=== PATIENT | female | born 1980 | race African-American/Black ===

== ENCOUNTER 2016-11-12 23:51 | Emergency (ER) | payer MEDICAID ==
[~2016-11-12] VITALS: Ht 165.1 cm; Wt 100.7 kg
[~2016-11-12 23:51] MED LIST: BENTYL10 MG ORAL; NKM; NORCO 5-325 TA1 EACH ORAL; NORCO1 E1 ORAL
[2016-11-12] MEDS ORDERED: ALBUTEROL2.5 MG/3 M INH (23:56)
[2016-11-12] MEDS ORDERED: NKM (23:56)
[2016-11-13 00:20] VITALS: BP 123/71
[2016-11-13] MEDS ORDERED: Ketorolac 30mg Inj IV ONE (00:30)
[2016-11-13 00:47] LABS: APPEARANCE,URINE CLEAR; KETONES,URINE 3+ (NEGATIVE); LEUKOCYTE ESTERASE ,URINE NEGATIVE (NEGATIVE); NITRITE,URINE NEGATIVE (NEGATIVE); PH,URINE 5 (4.5-8.0); PROTEIN,URINE NEGATIVE (NEGATIVE); UROBILINOGEN,URINE NORMAL MG/DL (0.0-1.0)
[2016-11-13 00:53] LABS: BASOPHILS % (AUTO) 1.3 % (0.0-2.0); EOSINOPHILS % (AUTO) 4.4 % (0.0-3.0); LYMPHOCYTES % (AUTO) 39.2 % (20.0-45.0); MEAN CORPUSCULAR HEMOGLOBIN 30.5 PG (27.0-31.0); MEAN CORPUSCULAR HGB CONC 32.2 G/DL (32.0-36.0); MEAN CORPUSCULAR VOLUME 95 FL (80-99); MONOCYTES % (AUTO) 8.9 % (1.0-10.0); NEUTROPHILS % (AUTO) 46.2 % (45.0-75.0); PLATELET COUNT 329 K/UL (150-450); RED BLOOD COUNT 5.02 M/UL (4.20-5.40); RED CELL DISTRIBUTION WIDTH 13.1 % (11.6-14.8); WHITE BLOOD COUNT 6.5 K/UL (4.8-10.8)
[2016-11-13 01:03] LABS: PROTHROMBIN TIME 10.4 SEC (9.30-11.50)
[2016-11-13 01:11] LABS: ALANINE AMINOTRANSFERASE 16 U/L (3-33); ALBUMIN/GLOBULIN RATIO 1.2 (1.0-2.7); ANION GAP 14 (5-15); ASPARTATE AMINO TRANSFERASE 21 U/L (5-40); CALCIUM 9.8 mg/dL (8.6-10.2); CARBON DIOXIDE 25 mEQ/L (20-30); CHLORIDE 101 mEQ/L (98-107); GLOMERULAR FILTRATION RATE > 60 mL/min (>60); HEMOLYSIS 13; LIPASE 26 U/L (< 60); POTASSIUM 4.3 mEQ/L (3.4-4.9); SODIUM 140 mEQ/L (135-145); TOTAL PROTEIN 7.8 g/dL (6.6-8.7)
[2016-11-13 02:23] VITALS: BP 118/62
[2016-11-13 04:00] VITALS: BP 122/63
--- NOTE | 2016-11-13 04:01 | Emergency Room Report ---
History of Present Illness General Chief Complaint: Abdominal Pain Source: Patient Present Illness HPI Patient presents with one week of suprapubic and left lower quadrant pain. She denies any fevers. She denies any dysuria or discharge. She doesn't take any medication for this. She wants to know what the problem is. LNMP 10/20, normal for her. Pain 7/10, aching, LLQ/suprapubic area, some radiation to back. No fever, chills, URI sy, cough, dyspnea, NVD, discharge, extremity pain. She has polycystic ovary syndrome. Allergies: Uncoded Allergies: SHELLFISH (Allergy, Mild, 12/06/15) Patient History Past Medical History: see triage record Social History: Denies: alcohol use, drug use, smoking Social History Narrative with boyfriend Last Menstrual Period: 10/20/16 Now: No : 1 Para: 1 Reviewed Nursing Documentation: PMH: Agreed, PSxH: Agreed Nursing Documentation-PMH Hx Asthma: Yes Review of Systems All Other Systems: negative except mentioned in HPI Physical Exam Vital Signs Date Time Temp Pulse Resp B/P Pulse Ox O2 Delivery O2 Flow Rate FiO2 11/12/16 23:52 98.8 98 14 138/84 100 Room Air Sp02 EP Interpretation: reviewed, normal General Appearance: well appearing, no apparent distress, GCS 15 Head: normocephalic Eyes: bilateral eye PERRL, bilateral eye normal inspection ENT: moist mucus membranes Neck: supple Respiratory: lungs clear, normal breath sounds Cardiovascular #1: regular rate, rhythm Cardiovascular #2: 2+ radial (R) Gastrointestinal: normal inspection, normal bowel sounds, no mass, non- distended, no guarding, no rebound, tenderness - L suprapubic area Genitourinary: no CVA tenderness, os closed, urethra normal, uterus normal, other - Left adnexal tenderness without cervical motion tenderness. Inversion and nabothian cyst Musculoskeletal: back normal, gait/station normal, normal range of motion Neurologic: alert, oriented x3, grossly normal Psychiatric: mood/affect normal Skin: normal inspection, warm/dry Medical Decision Making Diagnostic Impression: Primary Impression: Suprapubic pain ER Course Patient with LLQ pain. DDx: ectopic, ovarian cyst, UTI, PID, diverticulitis amongst others. Evaluation with labs and UA. Exam consistent with ovarian cyst and excludes PID. Treatment with IV hydration and toradol. IF + preg or other lab, consider more advanced studies. Labs unremarkable. Discussed oarian cyst and need for follow up with [employer]OUNT[employer] RECEIVABLE REPRESENTATIVE. Pain resolved with treatment. Patient stable for outpatient observation and treatment. Laboratory Tests Test 11/13/16 00:16 White Blood Count 6.5 K/UL (4.8-10.8) Red Blood Count 5.02 M/UL (4.20-5.40) Hemoglobin 15.3 G/DL (12.0-16.0) Hematocrit 47.6 % (37.0-47.0) H Mean Corpuscular Volume 95 FL (80-99) Mean Corpuscular Hemoglobin 30.5 PG (27.0-31.0) Mean Corpuscular Hemoglobin Concent 32.2 G/DL (32.0-36.0) Red Cell Distribution Width 13.1 % (11.6-14.8) Platelet Count 329 K/UL (150-450) Mean Platelet Volume 7.0 FL (6.5-10.1) Neutrophils (%) (Auto) 46.2 % (45.0-75.0) Lymphocytes (%) (Auto) 39.2 % (20.0-45.0) Monocytes (%) (Auto) 8.9 % (1.0-10.0) Eosinophils (%) (Auto) 4.4 % (0.0-3.0) H Basophils (%) (Auto) 1.3 % (0.0-2.0) Prothrombin Time 10.4 SEC (9.30-11.50) Prothrombin Time INR 1.0 (0.9-1.1) PTT 25 SEC (23-33) Urine Color Pale yellow Urine Appearance Clear Urine pH 5 (4.5-8.0) Urine Specific [place] 1.025 (1.005-1.035) Urine Protein Negative (NEGATIVE) Urine Glucose (UA) Negative (NEGATIVE) Urine Ketones 3+ (NEGATIVE) H Urine Occult Blood Negative (NEGATIVE) Urine Nitrite Negative (NEGATIVE) Urine Bilirubin Negative (NEGATIVE) Urine Urobilinogen Normal MG/DL (0.0-1.0) Urine Leukocyte Esterase Negative (NEGATIVE) Urine HCG, Qualitative Negative Sodium Level 140 mEQ/L (135-145) Potassium Level 4.3 mEQ/L (3.4-4.9) Chloride Level 101 mEQ/L (98-107) Carbon Dioxide Level 25 mEQ/L (20-30) Anion Gap 14 (5-15) Blood Urea Nitrogen 7 mg/dL (7-23) Creatinine 1.0 mg/dL (0.5-0.9) H Estimate Glomerular Filtration Rate > 60 mL/min (>60) Glucose Level 87 mg/dL (74-106) Calcium Level 9.8 mg/dL (8.6-10.2) Total Bilirubin 0.3 mg/dL (0.0-1.2) Aspartate Amino Transferase (AST) 21 U/L (5-40) Alanine Aminotransferase (ALT) 16 U/L (3-33) Alkaline Phosphatase 68 U/L (35-104) Total Protein 7.8 g/dL (6.6-8.7) Albumin 4.3 g/dL (3.5-5.2) Globulin 3.5 g/dL Albumin/Globulin Ratio 1.2 (1.0-2.7) Lipase 26 U/L (< 60) Chlamydia trachomatis RNA Pending Neisseria gonorrhoeae RNA Pending Microbiology Date/Time Source Procedure Growth Status 11/13/16 03:33 Vaginal Wet Prep - Final Complete Last Vital Signs Date Time Temp Pulse Resp B/P Pulse Ox O2 Delivery O2 Flow Rate FiO2 11/13/16 04:16 97.8 76 16 122/63 99 Room Air Status: improved Disposition: HOME, SELF-CARE Condition: Improved Scripts Tramadol Hcl* (ULTRAM*) 50 Mg Tablet 50 MG ORAL Q6H Y for For Pain, #8 TAB 0 Refills Prov: Kannan Mckeon M.D. 11/13/16 Ibuprofen* (MOTRIN*) 600 Mg Tablet 600 MG ORAL Q6H Y for For Pain, #16 TAB Prov: Kannan Mckeon M.D. 11/13/16 Referrals: [facility] (PCP) Kannan Mckeon M.D. Nov 13, 2016 04:01
[2016-11-13] MEDS ORDERED: TRAMADOL HCL50 MG ORAL (04:02)
[2016-11-13] MEDS ORDERED: IBUPROFEN600 MG ORAL (04:02)
[2016-11-13 04:16] VITALS: BP 122/63
== END 2016-11-13 04:16 | disposition home or self-care (01) ==
LOC: EMR 11-13 00:23
DX: R10.32 Left lower quadrant pain (principal); J45.909 Unspecified asthma, uncomplicated; Z91.013 Allergy to seafood
CPT/HCPCS: 36415; 80053; 81003; 81025; 83690; 85025; 85610; 85730; 87210; 87491; 87590; 96374; 96375; 99284; J1885

== ENCOUNTER 2018-01-28 21:07 | Emergency (ER) | payer SELFPAY ==
[~2018-01-28] VITALS: Ht 165.1 cm; Wt 83.9 kg
[~2018-01-28 21:07] MED LIST changes: +ALBUTEROL2.5 MG/3 M INH; +IBUPROFEN600 MG ORAL; +TRAMADOL HCL50 MG ORAL
--- NOTE | 2018-01-28 21:28 | Emergency Room Report ---
History of Present Illness General Chief Complaint: Lower Extremity Injury Source: Patient Present Illness HPI Patient presents with complaints of left foot pain Reports that approximately 2:00 in the afternoon she missed a step tripping forward and had pain to the left foot dorsal aspect denies any lapse of consciousness denies any ankle or knee pain Denies any pelvic pain Pain to the foot is 10 out of 10 worse with attempting to bear weight Allergies: Uncoded Allergies: SHELLFISH (Allergy, Mild, 12/06/15) Patient History Past Medical History: see triage record Pertinent Family History: none Reviewed Nursing Documentation: PMH: Agreed; PSxH: Agreed Nursing Documentation-PMH Past Medical History: No Stated History Hx Asthma: Yes Review of Systems All Other Systems: negative except mentioned in HPI Physical Exam Vital Signs Date Time Temp Pulse Resp B/P (MAP) Pulse Ox O2 Delivery O2 Flow Rate FiO2 01/28/18 21:17 97.2 108 16 140/80 99 Room Air 97.2 Sp02 EP Interpretation: reviewed, normal General Appearance: well appearing, no apparent distress Head: normocephalic, atraumatic Eyes: bilateral eye PERRL, bilateral eye EOMI ENT: hearing grossly normal, normal pharynx Neck: full range of motion, supple Respiratory: lungs clear Cardiovascular #1: regular rate, rhythm Gastrointestinal: non tender, soft Musculoskeletal: swelling - Dorsal left foot, tender to palpation diffusely over the midfoot. Ankle nontender. Knee and proximal fibula nontender Neurologic: alert, oriented x3, responsive Skin: normal color, no rash, warm/dry Lymphatic: no adenopathy Procedures Splinting Splinting : Consent: Verbal Location: Left foot Pre-Made Type: velcro Splint: poserior short Pre-Proc Neuro Vasc Exam: normal Post-Proc Neuro Vasc Exam: normal Patient Tolerated: Well Complications: None Medical Decision Making Diagnostic Impression: Primary Impression: Foot sprain ER Course Given the patient's history and presentation X-ray imaging was obtained No obvious fractures are seen however given the swelling and discomfort patient had splint applied And will have close outpatient follow-up Other X-Ray Diagnostic Results Other X-Ray Diagnostic Results : X-Ray ordered: L foot # of Views/Limited Vs Complete: 3 View Indication: Pain EP Interpretation: Yes Interpretation: no dislocation, no soft tissue swelling, no fractures Impression: No acute disease Electronically Signed by: Ariel Alberts DO Last Vital Signs Date Time Temp Pulse Resp B/P (MAP) Pulse Ox O2 Delivery O2 Flow Rate FiO2 01/28/18 21:17 97.2 108 16 140/80 99 Room Air 97.2 Status: improved Disposition: HOME, SELF-CARE Condition: Improved Scripts Ibuprofen* (MOTRIN*) 600 Mg Tablet 600 MG ORAL THREE TIMES A DAY, #20 TAB 0 Refills Prov: Ariel Alberts DO 01/28/18 Additional Instructions: Patient is provided with the discharge instructions notified to follow up with primary doctor in the next 2-3 days otherwise return to the er with any worsening symptoms. Please note that this report is being documented using [employer] technology. This can lead to erroneous entry secondary to incorrect interpretation by the dictating instrument. Ariel Alberts DO Jan 28, 2018 21:28
[2018-01-28] MEDS ORDERED: Tylenol #3 tab (300mg/30mg) ORAL ONE (21:30)
[2018-01-28] MEDS ORDERED: IBUPROFEN600 MG ORAL (22:08)
[2018-01-28 22:41] VITALS: BP 140/80
--- NOTE | 2018-01-29 10:54 | Diagnostic Imaging Report ---
Indication: Pain Technique: 3 views left foot Comparison: none Findings: There is mild metatarsus adductus and hallux valgus. No acute fractures. No dislocations. The joint spaces are preserved. Impression: Negative
== END 2018-01-28 22:46 | disposition home or self-care (01) ==
LOC: EMR 21:34
DX: S93.602A Unspecified sprain of left foot, initial encounter (principal); W01.0XXA Fall on same level from slipping, tripping and stumbling without subsequent striking against object, initial encounter; Y93.9 Activity, unspecified; Y92.9 Unspecified place or not applicable; Z91.013 Allergy to seafood
CPT/HCPCS: 99283

== ENCOUNTER 2019-04-16 11:14 | Emergency (ER) | payer MEDICAID ==
[~2019-04-16] VITALS: Ht 167.6 cm; Wt 79.4 kg
--- NOTE | 2019-04-16 11:38 | Emergency Room Report ---
History of Present Illness General Chief Complaint: Abdominal Pain Source: Patient Present Illness HPI 38-year-old female with no medical problems, surgical history of and cholecystectomy, presents to the ER with 1 week history of intermittent sharp nonradiating epigastric abdominal pain, became more persistent this morning, with multiple episodes of associated nonbloody nonbilious frl-vwzxvy-kjtjrv emesis. She reports no fevers, no chest pain, no shortness of breath, no gynecologic complaints, no urinary complaints, normal bowel movements, and reports she is not trying medication for symptoms, and cannot think of anything that triggered it, nor anything that makes it worse or makes it better. Patient apparently had a syncopal episode while having acute nausea, she does not recollect much of this, family reports there was while retching she had a transient loss of consciousness. Allergies: Uncoded Allergies: SHELLFISH (Allergy, Mild, 12/06/15) SEAFOOD (Allergy, Unknown, 04/16/19) Patient History Past Medical History: see triage record Last Menstrual Period: 04/09/2019 Reviewed Nursing Documentation: PMH: Agreed; PSxH: Agreed Nursing Documentation-PMH Past Medical History: No Stated History Hx Asthma: Yes Review of Systems All Other Systems: negative except mentioned in HPI Physical Exam Vital Signs Date Time Temp Pulse Resp B/P (MAP) Pulse Ox O2 Delivery O2 Flow Rate FiO2 04/16/19 11:22 80 16 126/87 (100) 97 Room Air Sp02 EP Interpretation: reviewed, normal General Appearance: no apparent distress, alert, non-toxic Head: normocephalic Eyes: bilateral eye normal inspection, bilateral eye PERRL, bilateral eye EOMI ENT: normal ENT inspection, hearing grossly normal, normal pharynx, no angioedema, normal voice, dry mucus membranes Neck: normal inspection, full range of motion, supple, supple/symm/no masses Respiratory: chest non-tender, lungs clear, normal breath sounds, chest symmetrical, palpation of chest normal Cardiovascular #1: normal peripheral pulses, regular rate, rhythm Cardiovascular #2: 2+ radial (R), 2+ radial (L), 2+ dorsalis pedis (R), 2+ dorsalis pedis (L) Gastrointestinal: normal inspection, soft, no mass, no guarding, no rebound, tenderness - Epigastric area, but no guarding and no rebound Rectal: deferred Genitourinary: normal inspection, no CVA tenderness Musculoskeletal: back normal, normal range of motion, no calf tenderness, gait/ station normal, Dejon's Sign negative, non-tender Neurologic: alert, motor strength/tone normal, washcloth folder III-XII nml as tested, sensory intact, responsive, speech normal Psychiatric: judgement/insight normal, memory normal, mood/affect normal, no suicidal/homicidal ideation Lymphatic: no adenopathy Medical Decision Making Diagnostic Impression: Primary Impression: Abdominal pain ER Course Unremarkable work-up, after 1 dose of analgesics, abdomen exam is benign. No longer tender at all. Work-up is also completely unremarkable including scans, urine, labs. Acute gastritis, patient did have a possible syncopal episode suspect vasovagal episode. Patient and significant other at bedside, understand and agree to return for worsening symptoms, will discharge with aKren Aranda Zofran EKG Diagnostic Results EKG Time: 11:26 EP Interpretation: no stemi, no brugada, normal qtc Rate: normal Rhythm: NSR ST Segments: no acute changes Rhythm Strip Diag. Results Rhythm Strip Time: 11:38 EP Interpretation: yes Rate: 80 Rhythm: NSR, no PVC's, no ectopy CT/MRI/US Diagnostic Results CT/MRI/US Diagnostic Results : Imaging Test Ordered: ct abd pelvis Impression no acute dz Last Vital Signs Date Time Temp Pulse Resp B/P (MAP) Pulse Ox O2 Delivery O2 Flow Rate FiO2 04/16/19 11:22 80 16 126/87 (100) 97 Room Air Disposition: HOME, SELF-CARE Condition: Stable ANATOLIY GREY M.D Apr 16, 2019 11:38
[2019-04-16 12:18] LABS: BASOPHILS % (AUTO) 0.6 % (0.0-2.0); EOSINOPHILS % (AUTO) 0.9 % (0.0-3.0); LYMPHOCYTES % (AUTO) 11.6 % (20.0-45.0); MEAN CORPUSCULAR VOLUME 91 FL (80-99); MONOCYTES % (AUTO) 7.6 % (1.0-10.0); NEUTROPHILS % (AUTO) 79.3 % (45.0-75.0); PLATELET COUNT 374 K/UL (150-450); RED BLOOD COUNT 4.71 M/UL (4.20-5.40); RED CELL DISTRIBUTION WIDTH 12.9 % (11.6-14.8); WHITE BLOOD COUNT 8.6 K/UL (4.8-10.8)
[2019-04-16 12:28] VITALS: BP 132/92
[2019-04-16 12:44] LABS: ANION GAP 10 mmol/L (5-15); BLOOD UREA NITROGEN 8 mg/dL (7-18); CARBON DIOXIDE 26 MMOL/L (21-32); CHLORIDE 103 MMOL/L (98-107); CREATININE 0.8 MG/DL (0.55-1.30); SODIUM 139 MMOL/L (136-145)
[2019-04-16 12:49] LABS: ALANINE AMINOTRANSFERASE 24 U/L (12-78); ALKALINE PHOSPHATASE 94 U/L (46-116); ASPARTATE AMINO TRANSFERASE 17 U/L (15-37); BILIRUBIN,TOTAL 0.5 MG/DL (0.2-1.0)
[2019-04-16 12:53] LABS: APPEARANCE,URINE CLEAR; BILIRUBIN, URINE NEGATIVE (NEGATIVE); COLOR,URINE PALE YELLOW; GLUCOSE, URINE (UA) NEGATIVE (NEGATIVE); KETONES,URINE 3+ (NEGATIVE); LEUKOCYTE ESTERASE ,URINE NEGATIVE (NEGATIVE); NITRITE,URINE NEGATIVE (NEGATIVE); PH,URINE 6.5 (4.5-8.0); PROTEIN,URINE NEGATIVE (NEGATIVE); UROBILINOGEN,URINE NORMAL MG/DL (0.0-1.0)
[2019-04-16] MEDS ORDERED: Morphine Sulfate 4mg/ml Inj (IV USE ONLY) IVP ONE (13:30)
--- NOTE | 2019-04-16 14:29 | Diagnostic Imaging Report ---
Indication: Abdominal pain, sharp nonradiating epigastric abdominal pain for one week, more persistent this morning, with associated emesis Technique: Spiral acquisitions obtained through the abdomen and pelvis. No oral contrast utilized, per emergency room physician request No IV contrast utilized, per referring physician request. Multiplanar reconstructions were generated. Total dose length product 1493 mGycm. CTDIvol(s) 25 mGy. Dose reduction achieved using automated exposure control Comparison: 12/06/2015 Findings: Lack of enteric contrast limits assessment of the GI tract. The appendix is normal. There is equivocal gastric wall thickening, although this appearance is similar to the previous exam and probably largely artifact of under distention. A few thick walled and fluid-filled small bowel loops are seen in the lower abdominal/upper pelvic midline and right lower quadrant no jose alfredo small bowel distention. No free or loculated intraperitoneal gas or fluid is evident. There is no evidence of colonic diverticulosis or diverticulitis. Patient has undergone interim cholecystectomy. Lack of IV contrast limits assessment of the solid organs. The liver, bile ducts, pancreas, spleen, adrenals, kidneys are unremarkable. Uterus and ovaries are unremarkable. No pelvic mass or adenopathy. There are a few prominent mesenteric root nodes. No retroperitoneal mass or adenopathy. The included lung bases are clear. The bones demonstrate thoracolumbar scoliotic deformity and mild degenerative spondylosis changes. Impression: Limited assessment of the GI tract, due to lack of enteric contrast administration. Somewhat prominent fluid-filled thick walled small bowel loops may reflect mild enteritis changes. Apparent gastric wall thickening, probably artifact of under distention but gastritis also a possibility Interim cholecystectomy Scoliosis and degenerative spondylosis incidentally noted Findings as by phone with Dr. Bell in the emergency room at the time of interpretation The CT scanner at [facility] is accredited by the [employer] and the scans are performed using protocols designed to limit radiation exposure to as low as reasonably achievable to attain images of sufficient resolution adequate for diagnostic evaluation.
[2019-04-16] MEDS ORDERED: ZOFRAN4 M3 ORAL (14:34)
[2019-04-16] MEDS ORDERED: DICYCLOMINE HCL10 MG ORAL (14:34)
[2019-04-16] MEDS ORDERED: FAMOTIDINE20 MG ORAL (14:34)
[2019-04-16 14:45] VITALS: BP 125/71
== END 2019-04-16 14:45 | disposition home or self-care (01) ==
LOC: EMR 12:30 → CANBEDREQ 14:38 → EMR 14:45
DX: R10.13 Epigastric pain (principal); Z90.49 Acquired absence of other specified parts of digestive tract; R11.10 Vomiting, unspecified
CPT/HCPCS: 36415; 74176; 80053; 80307; 81003; 83690; 84702; 85025; 93005; 96361; 96374; 96375; 96376; J2270; J2405; J7030; Z7502; 99284

== ENCOUNTER 2019-06-11 22:05 | Emergency (ER) | payer MEDICAID ==
[~2019-06-11] VITALS: Ht 162.6 cm; Wt 91.6 kg
[~2019-06-11 22:05] MED LIST changes: +DICYCLOMINE HCL10 MG ORAL; +FAMOTIDINE20 MG ORAL; +ZOFRAN4 M3 ORAL
[2019-06-11 22:35] VITALS: BP 134/90
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
[2019-06-11] MEDS ORDERED: LIDODERM700 M1 TOPIC (22:42)
[2019-06-11] MEDS ORDERED: ROBAXIN-750750 MG PO (22:42)
[2019-06-11] MEDS ORDERED: IBUPROFEN600 MG ORAL (22:42)
[2019-06-11] MEDS ORDERED: Methocarbamol 750mg tab ORAL ONE (22:45)
[2019-06-11] MEDS ORDERED: Ketorolac 30mg Inj IM ONE (22:45)
[2019-06-11 22:52] VITALS: BP 134/90
--- NOTE | 2019-06-11 22:52 | NUR ---
ED Nurse Note: All orders completed per ERMD orders. Pt cleared by health care Provider for discharge. DC instructions/prescription was given and explained to pt and verbalized understanding of teachings. Instructed pt to follow up with primary care doctor. All medical deviecs such as ID band removed. Pt is AAO x4, ambulatory and left with all personal belongings.
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
== END 2019-06-11 22:52 | disposition home or self-care (01) ==
LOC: EMR 22:45
DX: S16.1XXA Strain of muscle, fascia and tendon at neck level, initial encounter (principal); M62.830 Muscle spasm of back; V43.62XA Car passenger injured in collision with other type car in traffic accident, initial encounter; Y92.410 Unspecified street and highway as the place of occurrence of the external cause; Z91.013 Allergy to seafood
CPT/HCPCS: 96372; J1885; Z7502; 99283